=== PATIENT | male | born 1990 | race Caucasian/White ===

== ENCOUNTER → 2016-08-12 | Outpatient (CLI) | payer BC ==
[~2016-08-12] MED LIST: ABILIFY2 MG; ACETAMINOPHEN W1 TA6 PO; AMBIEN 10MG10 MG PO; BELLADONNA SL; BENTYL 20MG20 MG/TAB PO; CILOXAN .3% EY2.5 ML OP; CONCERTA PO; CONCERTA36 MG PO; DEPAKOTE 250MG250 MG PO; FLEXERIL 1010 MG/TAB PO; KLONOPIN2 MG PO; NORCO 325 MG-51 TAB PO; SEROQUEL 1100 MG/TAB PO; SEROQUEL50 MG PO; ULTRAM 50MG TAB50 MG PO; VENLAFAXINE225 MG PO; VYVANSE60 MG PO; XANAX 0.5MG0.5 MG PO; ZOFRAN ODT4 MG PO
== END ==
LOC: BHSO 13:02
DX: F33.42 Major depressive disorder, recurrent, in full remission (principal)

== ENCOUNTER → 2017-05-19 | Outpatient (CLI) | payer BC | LOC: BHSO 11:34 | DX: F33.42 Major depressive disorder, recurrent, in full remission (principal) | CPT/HCPCS: G0463 ==

== ENCOUNTER → 2017-11-17 | Outpatient (CLI) | payer BC | LOC: BHSO 11:42 | DX: F90.0 Attention-deficit hyperactivity disorder, predominantly inattentive type (principal) | CPT/HCPCS: G0463 ==

== ENCOUNTER → 2018-05-22 | Outpatient (CLI) | payer BC | LOC: BHSO 11:46 | DX: F90.0 Attention-deficit hyperactivity disorder, predominantly inattentive type (principal) | CPT/HCPCS: G0463 ==

== ENCOUNTER → 2019-01-11 | Outpatient (CLI) | payer BC | LOC: BHSO 11:46 | DX: F33.42 Major depressive disorder, recurrent, in full remission (principal) | CPT/HCPCS: G0463 ==

== ENCOUNTER 2019-08-26 11:12 | Emergency (ER) | payer BC ==
[~2019-08-26] VITALS: Ht 193 cm; Wt 104.5 kg
[2019-08-26 11:17] VITALS: TEMP 97.1
[2019-08-26 13:00] VITALS: BP 137/82; PULSE 67
== END 2019-08-26 13:00 | disposition home or self-care (01) ==
LOC: COL.ER 11:12
DX: Z29.14 Encounter for prophylactic rabies immune globulin (principal); F41.9 Anxiety disorder, unspecified; F32.9 Major depressive disorder, single episode, unspecified
CPT/HCPCS: 90375

== ENCOUNTER 2019-09-09 12:31 | Outpatient (RCR) | payer BC, OTHER ==
[~2019-09-09] VITALS: Ht 193 cm; Wt 104.5 kg
[2019-09-09 12:57] VITALS: BP 129/80; PULSE 67; TEMP 98.6
== END 2019-11-27 | disposition still patient (30) ==
LOC: COL.ER
DX: Z23 Encounter for immunization (principal); Z29.14 Encounter for prophylactic rabies immune globulin; Z87.891 Personal history of nicotine dependence

== ENCOUNTER → 2019-11-12 | Outpatient (CLI) | payer BC | LOC: BHSO 16:27 | DX: F33.42 Major depressive disorder, recurrent, in full remission (principal) | CPT/HCPCS: G0463 ==

== ENCOUNTER 2023-08-14 17:17 | Emergency (ER) | payer SELFPAY ==
[~2023-08-14] VITALS: Ht 185.4 cm; Wt 109.1 kg
[2023-08-14 17:35] VITALS: BP 148/80; PULSE 76; TEMP 98.3
[2023-08-14 18:59] LABS: HIV 1/2 Antibodies Non-Reactive; HIV-1p24 Antigen Non-Reactive
[2023-08-15 15:08] LABS: HEPATITIS B SURFACE ANTIBODY 12.9 (()); HEPATITIS C VIRUS ANTIBODY Negative (Negative)
== END 2023-08-14 18:02 | disposition home or self-care (01) ==
LOC: COL.ER 17:17
PROVIDERS: Nurse Practitioner
DX: Z77.21 Contact with and (suspected) exposure to potentially hazardous body fluids (principal); Z87.891 Personal history of nicotine dependence